=== PATIENT | female | born 1985 | race Caucasian/White ===

== ENCOUNTER 2022-01-19 21:12 | Emergency (ER) | payer OTHER, MEDICAID, SELFPAY ==
[2022-01-19 21:30] VITALS: BP 163/72; PULSE 102; RESP 16; TEMP 36.8; O2SAT 95; BMI 33.6
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
--- NOTE | 2022-01-19 22:11 | DI.RAD.S_ITS ---
PROCEDURE: XR SHOULDER LT MIN 2V INDICATIONS: pain and scapular pain TECHNIQUE: 3 views of the shoulder were acquired. COMPARISON: None. FINDINGS: Bones: No fractures or dislocations. No suspicious bony lesions. Visualized ribs appear intact. Soft tissues: No suspicious soft tissue calcifications. IMPRESSION: Normal for age, source of current scapular pain symptoms is not seen. Dictated by: James Vann M.D. on 01/19/2022 at 22:59 Approved by: James Vann M.D. on 01/19/2022 at 22:59
--- NOTE | 2022-01-19 22:11 | DI.RAD.S_ITS ---
PROCEDURE: XR SCAPULA LT INDICATIONS: pain TECHNIQUE: 2 views of the scapula were acquired. COMPARISON: None. FINDINGS: Bones: No fractures or dislocations. No suspicious bony lesions. Visualized ribs appear intact. Soft tissues: Overlying soft tissues appear normal. IMPRESSION: Normal for age, source of current scapular pain symptoms is not seen. Dictated by: James Vann M.D. on 01/19/2022 at 22:59 Approved by: James Vann M.D. on 01/19/2022 at 22:59
[2022-01-19] MEDS: KETOROLAC 30 MG/ML VIAL IM (22:33)
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
[2022-01-19] MEDS: HYDROCODONE/ACET 5/325 PREPACK 1 BOTTLE MISC (23:57)
== END 2022-01-20 00:03 | disposition home or self-care (01) ==
PROVIDERS: Emergency Provider Emergency Medicine
DX: S02.2XXA Fracture of nasal bones, initial encounter for closed fracture (principal); M25.512 Pain in left shoulder; H53.8 Other visual disturbances; S00.81XA Abrasion of other part of head, initial encounter; Y04.2XXA Assault by strike against or bumped into by another person, initial encounter
CPT/HCPCS: 70450; 70486; 73010; 73030; 96372; 99283; 99284; J1885